=== PATIENT | male | born 1930 | race African-American/Black ===

== ENCOUNTER 2016-12-18 17:38 | Observation (INO) | payer MEDICARE, OTHER ==
[~2016-12-18 17:38] MED LIST: ISOVUE-370 76%-LOCM 1 ML ONE
--- NOTE | 2016-12-18 19:01 | CT ---
CT HEAD WITHOUT IV CONTRAST: 12/18/16 HISTORY: Altered mental status. Patient became confused at gas station and could not perform normal tasks. COMPARISON: 03/21/16 FINDINGS: Again noted are mild chronic small vessel ischemic changes as well as cerebral and cerebellar volume loss. There is no evidence of a hemorrhage, acute infarction, mass effect, or midline shift. Ventri cular system is normal in size, shape, and position for the degree of sulcal atrophy. There is stable postsurgical changes at the left calvarium. Stable linear lucency extending into the base of the left sphenoid bone is again present. There is stable mild encephalomalacia in the left parieto-occipital lobe. There has been no interval change from the prior exam. IMPRESSION: 1. No acute intracranial abnormalities demonstrated. 2. Mild chronic small vessel ischemic changes and cerebral and cerebellar volume loss. 3. Additional findings are as described above. 4. Above findings discussed with Dr. Harrell in the Emergency Department on 12/18/16 at 1823 hours . POS: [facility]
[2016-12-18 19:36] LABS: Prothrombin Time 12.8 SEC (12.0-14.7)
[2016-12-18 19:38] LABS: Hematocrit 40.6 % (42.0-52.0); Mean Platelet Volume 9.5 fL (7.4-10.4); Red Blood Cell (RBC) Count 4.08 mill/uL (4.70-6.10); White Blood Cell (WBC) Count 14.8 thou/uL (4.8-10.8)
[2016-12-18 19:40] LABS: Lactic Acid - Sepsis 2.7 mmol/L (0.5-2.2)
[2016-12-18 19:44] LABS: ALT (SGPT) Less than 7 U/L (8-55); AST (SGOT) 14 U/L (5-34); Alkaline Phosphatase 398 U/L (40-150); Anion Gap 17 mmol/L (10-20); BUN (Urea Nitrogen) 13 mg/dL (8.4-25.7); Bilirubin, Total 0.5 mg/dL (0.2-1.2); CK (CPK) 52 U/L (30-200); Calc. Creatinine Clearance 0 mL/min (70-130); Calcium 10.6 mg/dL (7.8-10.44); Carbon Dioxide 29 mmol/L (23-31); Chloride 96 mmol/L (98-107); Estimated GFR-MDRD 18; Globulin 3.9 g/dL (2.4-3.5); Protein, Total 7.7 g/dL (5.8-8.1)
[2016-12-18 19:48] LABS: Troponin I 0.069 ng/mL (< 0.028)
--- NOTE | 2016-12-18 19:52 | CT ---
CTA OF THE HEAD WITH IV CONTRAST AND 3D REFORMATTED IMAGING CTA OF THE NECK WITH IV CONTRAST AND 3D REFORMATTED IMAGING CT PERFUSION OF THE BRAIN 12/18/16 INDICATION: 86-year-old male with history of confusion at a gas station and not being able to perform normal tas ks. This was a stroke alert. COMPARISON: Noncontrast CT of the brain dated 12/18/16 performed at 6:12 p.m. Comparisons are made with a CTA of the neck dated 03/21/16. FINDINGS: CT PERFUSION EVALUATION: There is symmetrical axial blood flow seen to both cerebral hemispheres. The blood volume is symmetr ical throughout both cerebral hemispheres. The mean transit time is symmetrical throughout both cere bral hemispheres. CTA OF THE NECK: There is calcified lymph nodes within the right hilar region and right aspect of the mediastinum. Th e lung apices are clear. There is severe vascular calcification involving the aortic arch. The visua lized main pulmonary arteries appear within normal limits. The right brachiocephalic artery origin appears within normal limits. The right subclavian artery is widely patent. The right common carotid artery appears widely patent. The carotid bulb and right in ternal carotid artery throughout its cervical segment appears patent. The left common carotid artery originates from the arch in normal configuration. The left common car otid artery is patent. There is mild 50% luminal caliber narrowing involving the left internal carot id artery which is stable to a comparison 03/21/16. The remaining cervical course of the left ICA carrie ears patent. The left subclavian artery origin is patent. There is some mild atherosclerotic irregularity involvi ng the left subclavian artery. The right vertebral artery demonstrates at least high grade stenosis involving the origin of the rig ht vertebral artery. The right vertebral artery appears diminutive which is stable. The cervical cou rse of the right vertebral artery appears patent. 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 This appears stable to the prior exam. There are hypodensities involving the right thyroid lobe which are similar appearing. No pathologically enlarged lymph nodes are evid ent. The visualized aerodigestive tract appears within normal limits. The visualized parotid and sub mandibular glands are normal appearing. CTA OF THE HEAD: The petrous segment of the right ICA is patent. There is some mild atherosclerotic irregularity invo lving the precavernous and cavernous segment of the right ICA. The supraclinoid right ICA is widely patent. The right MCA appears to be widely patent. The ACAs bilaterally appear to be patent. The lef t MCA appears to be widely patent. There is moderate atherosclerotic irregularity involving the intracranial right vertebral artery wit h multifocal mild area of narrowing. The basilar artery appears patent. Both posterior cerebral uzair favian appear patent. The left vertebral artery demonstrates some mild atherosclerotic irregularity al akhil its intracranial segment. No definite acute infarct, hemorrhage, or hydrocephalus is present. There is mild generalized cerebr al and cerebellar atrophy. There is no midline shift. No area of abnormal enhancement is demonstrate d. There is postsurgical change consistent with a left temporal craniotomy. The mastoid air cells ar e clear. The paranasal sinuses are clear. IMPRESSION: 1. Normal cerebral perfusion evaluation. 2. No high grade stenosis seen involving the arterial structures of the intracranial artery. Th ere is multifocal areas of mild narrowing involving both the intracranial vertebral arteries. 3. 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 This is stable to comparison of 03/21. There is high grade stenosis involving the origin of the right vertebral artery due to calcifie d atherosclerotic plaque. 4. Findings of prior granulomatous disease. 5. Right thyroid hypodensities incompletely characterized. These appear similar to the comparis on CT evaluation. Recommend ultrasound followup. 6. Findings were called to Dr. Harrell at 7:09 p.m. on 12/18/16. Code CR POS:
--- NOTE | 2016-12-18 19:59 | RAD ---
PORTABLE AP CHEST X-RAY 12/18/16 HISTORY: Altered mental status. Patient unable to perform normal tasks as usual. COMPARISON: 03/21/16 The cardiac silhouette and pulmonary vasculature are within normal limits for the portable technique of the study. The lungs are clear. Vascular calcifications are again seen in the thoracic aorta. No other interval change. IMPRESSION: No acute cardiopulmonary process. POS: [facility]
[2016-12-18 20:01] LABS: #Lymphocytes 1.2 thou/uL (1.20-3.40); #Monocytes 1.2 thou/uL (0.11-0.59); #Neutrophils 12.4 thou/uL (1.40-6.50); %Lymphocytes 7.7 % (21.0-51.0); Anisocytosis SLIGHT = 6-15 cells (100X) (0-5/hpf); Hypochromia SLIGHT = 6-15 cells (100X) (0-5/hpf); Neutrophil 90 % (42-75); Target Cells SLIGHT = 2-5 cells (100X) (0-1/hpf)
[2016-12-18] MEDS ORDERED: Ondansetron HCl/PF 4 MG/2 ML Vial IVP PRN (23:12)
[2016-12-18] MEDS ORDERED: Ondansetron ODT 4 MG TAB SL PRN (23:12)
[2016-12-18 23:15] VITALS: BMI 22.4
[2016-12-19] MEDS ORDERED: Acetaminophen 500 MG TAB PO PRN (02:07)
[2016-12-19] MEDS ORDERED: cloNIDine HCl 0.1 MG TAB PO PRN (02:07)
[2016-12-19] MEDS ORDERED: Ondansetron ODT 4 MG TAB PO PRN (02:07)
[2016-12-19] MEDS ORDERED: Ondansetron HCl/PF 4 MG/2 ML Vial IVP PRN (02:07)
--- NOTE | 2016-12-19 03:41 | HP ---
DATE OF ADMISSION: 12/19/2016 PRIMARY CARE PROVIDER: [facility] in [place], [place]. PRIMARY DOLLYMAN: Hakeem Hogan M.D. CHIEF COMPLAINT: Altered mentation. HISTORY OF PRESENT ILLNESS: This is an 86-year-old -[place]ov[place] male, who presents to [facility] after apparently becoming confused while getting fuel for his vehicle. The patient states that the gas operations superintendent noticed that he was looking like himself and unable to pe rform simple tasks that he normally would. Patient was noted taking an increased amount of time up to 5 minutes to walk from the door of the gas station to his car and unable to buckle himself into h is vehicle. The patient states that he had completed dialysis previous to filling up his vehicle wi thout incident. Patient states he is compliant with his hemodialysis, which he attends 3 times per week. Patient does relate a history of a recent evaluation at the [facility] in [place], [place], at wh ich point he underwent a bilateral knee arthrocentesis due to swelling of bilateral knees. The darius ent denied any specific trauma or injury, but does state some tenderness to the knee region and some warmth when he touches the knee. Patient denied any specific unilateral symptoms, difficulty with speech, falling, recent head injury, or visual disturbance. The patient denied any specific change to his medication regimen and states he has been compliant with medical followups. The patient was transported to the emergency room undergoing a general evaluation including CT of the head with CT a ngiogram of the head and neck, all negative studies. The patient received aspirin 324 mg and was re ferred to the Hospitalist Service for admission. PAST MEDICAL HISTORY: 1. End-stage renal disease with current hemodialysis 3 times per week. 2. Chronic obstructive pulmonary disease. 3. Secondary hyperparathyroidism. 4. Hypertension. 5. Diastolic heart failure, compensated. 6. Anemia secondary to chronic kidney disease. PAST SURGICAL HISTORY: 1. Status post AV-fistula placement. 2. Status post multiple skin grafting for extensive geller. 3. Status post partial colectomy. 4. Status post bilateral knee arthrocentesis. CURRENT MEDICATIONS: Based on the previous review of the medical record: 1. Tylenol 650 mg p.o. q.6 hours p.r.n. 2. Allopurinol 100 mg p.o. daily. 3. Aspirin 81 mg 1 tab p.o. daily. 4. Atenolol 75 mg p.o. daily. 5. Lipitor 40 mg 1 tab p.o. daily. 6. Sensipar 120 mg p.o. daily. 7. Multivitamin 1 tab p.o. daily. 8. Protonix 40 mg 1 tab p.o. daily. 9. Prazosin 1 mg p.o. at bedtime. 10. Renvela 2400 mg p.o. t.i.d. 11. Sulindac 150 mg p.o. b.i.d. 12. Trazodone 100 mg p.o. at bedtime. ALLERGIES: No known drug allergies. FAMILY HISTORY: Positive for diabetes and hypertension. SOCIAL HISTORY: The patient resides in [place], [place]. . No current alcohol, tobacco, or illicit drug use. Wix war . REVIEW OF SYSTEMS: The following complete review of systems was negative, unless otherwise mentione d in the HPI or below: Constitutional: Weight loss or gain, ability to conduct usual activities. Skin: Rash, itching. Eyes: Double vision, pain. ENT/Mouth: Nose bleeding, neck stiffness, pain, tenderness. Cardiovascular: Palpitations, dyspnea on exertion, orthopnea. Respiratory: Shortnes s of breath, wheezing, cough, hemoptysis, fever or night sweats. Gastrointestinal: Poor appetite, abdominal pain, heartburn, nausea, vomiting, constipation, or diarrhea. Genitourinary: Urgency, fr equency, dysuria, nocturia. Musculoskeletal: Pain, swelling. Neurologic/Psychiatric: Anxiety, de pression. Allergy/Immunologic: Skin rash, bleeding tendency. PHYSICAL EXAMINATION: VITAL SIGNS: On admission, blood pressure 199/76, pulse 72, respiratory rate 18, temperature 98.9 d egrees Fahrenheit, O2 saturation 92% on room air. GENERAL APPEARANCE: This is an 86-year-old -[place] male, alert and oriented x3, pleasant, conversant, in no acute distress. HEENT: Pupils are equal, round, and reactive to light and accommodation. Extraocular muscles are i ntact. No scleral icterus, no conjunctival injection. Nares patent. OP is clear. Teeth in fair r epair. NECK: Supple, no cervical adenopathy, no thyromegaly, no carotid bruits, no JVD appreciated. Cervi paradise spine with full active and passive range of motion. CHEST: Lungs are clear to auscultation bilaterally. CARDIOVASCULAR: S1, S2 with 1-2/6 systolic ejection murmur loudest in the right upper sternal borde r. ABDOMEN: Round, soft, nontender, nondistended. Bowel sounds are positive in all four quadrants. N o hepatosplenomegaly, positive abdominal bruit noted in the midepigastrium. EXTREMITIES: Warm and dry with fair turgor. No clubbing, cyanosis, or asymmetric edema appreciated . Pulses palpable distally at the dorsalis pedis, posterior tibial, and popliteal arteries bilatera lly. Capillary refill less than 2 seconds. Positive mild edema of the right greater than left knee without joint line tenderness. NEUROLOGIC: Cranial nerves II through XII are grossly intact. No focal or lateralizing signs appre ciated. PERTINENT LABORATORY AND X-RAY FINDINGS: Sodium 139, potassium 3.3, chloride 96, CO2 of 29, BUN 13, creatinine 3.79 with estimated GFR of 18, glucose 104, lactic acid level ranged between 2.1-2.7, ca lcium 10.6, alkaline phosphatase 398, troponin I 0.069. Albumin 3.8. CBC showed a white blood cell count 14.8, hemoglobin 12, hematocrit 41, MCV 100, platelet count 148 with 90% neutrophils. CT of the brain without contrast dated 12/18/2016, showed no acute intracranial process. Mild chronic sma ll vessel ischemic changes noted. CT angiogram of the head and neck dated 12/18/2016, showed normal cerebral perfusion. No high-grade stenosis. 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 High-grade stenosis involving the origi n of the right vertebral artery due to calcified or atherosclerostic plaque. Portable chest x-ray d ated 12/18/2016, showed no acute cardiopulmonary process. EKG dated 12/18/2016 by my interpretation , shows sinus mechanism with rates in the 80s. Attenuated R waves noted in the precordial leads. N ormal axis. No acute ST-T wave changes appreciated. ASSESSMENT AND PLAN: 1. Altered mental status/questionable acute encephalopathy. The patient will be observed on the [facility] unit. Exact etiology is unclear. Currently, patient to baseline mental status functioning. N o specific evidence of acute cerebrovascular accident. We will continue supportive management and m onitor clinical response. 2. Hypertension, labile. We will resume home antihypertensive regimen and monitor clinical respons e. 3. Hyperlipidemia. Resume Lipitor 40 mg p.o. daily and check fasting lipid profile in the a.m. 4. End-stage renal disease with hemodialysis. We will consult Nephrology service for any further r ecommendations if patient stays longer than 24 hours. 5. Bilateral knee effusions status post bilateral arthrocentesis. We will continue to monitor clin ically. Leukocytosis noted at the time of admission and we will repeat CBC in the a.m. Hold antibi otic therapy and monitor clinically. 6. Hypokalemia. We will initiate potassium chloride 40 mEq p.o. b.i.d. and repeat potassium level in the a.m. 7. Chronic macrocytic anemia. Suspect secondary to chronic kidney disease. Repeat CBC in the a.m. 8. Prophylaxis. Sequential compression devices while in bed. Pepcid 20 mg p.o. b.i.d. 9. Code status is FULL. Surrogate medical decision maker is patient's spouse.
[2016-12-19 04:09] LABS: Anion Gap 8 mmol/L (10-20); BUN (Urea Nitrogen) 19 mg/dL (8.4-25.7); Calc. Creatinine Clearance 9 mL/min (70-130); Calcium 10.3 mg/dL (7.8-10.44); Carbon Dioxide 36 mmol/L (23-31); Chloride 95 mmol/L (98-107); Estimated GFR-MDRD 15
[2016-12-19 04:40] LABS: Hematocrit 35.9 % (42.0-52.0); Mean Platelet Volume 9.4 fL (7.4-10.4); Neutrophil 85 % (42-75); Red Blood Cell (RBC) Count 3.71 mill/uL (4.70-6.10); White Blood Cell (WBC) Count 10.3 thou/uL (4.8-10.8)
[2016-12-19] MEDS: Sevelamer Carbonate 800 MG TAB PO SCH ×3 (08:26→18:57)
[2016-12-19] MEDS ORDERED: FLU VACC TS2017-18 (>65YR) 0.5 ML SYRINGE IM ONE (09:00)
[2016-12-19] MEDS ORDERED: Famotidine 20 MG TAB PO SCH (09:00)
[2016-12-19] MEDS ORDERED: Atorvastatin Calcium 40 MG TAB PO SCH (09:00)
[2016-12-19] MEDS ORDERED: Atenolol 25 MG TAB PO SCH (09:00)
[2016-12-19] MEDS ORDERED: Cinacalcet HCl 30 MG TAB PO SCH (09:00)
--- NOTE | 2016-12-19 13:38 | CT ---
CTA OF THE HEAD WITH IV CONTRAST AND 3D REFORMATTED IMAGING CTA OF THE NECK WITH IV CONTRAST AND 3D REFORMATTED IMAGING CT PERFUSION OF THE BRAIN 12/18/16 INDICATION: 86-year-old male with history of confusion at a gas station and not being able to perform normal tas ks. This was a stroke alert. COMPARISON: Noncontrast CT of the brain dated 12/18/16 performed at 6:12 p.m. Comparisons are made with a CTA of the neck dated 03/21/16. FINDINGS: CT PERFUSION EVALUATION: There is symmetrical axial blood flow seen to both cerebral hemispheres. The blood volume is symmetr ical throughout both cerebral hemispheres. The mean transit time is symmetrical throughout both cere bral hemispheres. CTA OF THE NECK: There is calcified lymph nodes within the right hilar region and right aspect of the mediastinum. Th e lung apices are clear. There is severe vascular calcification involving the aortic arch. The visua lized main pulmonary arteries appear within normal limits. The right brachiocephalic artery origin appears within normal limits. The right subclavian artery is widely patent. The right common carotid artery appears widely patent. The carotid bulb and right in ternal carotid artery throughout its cervical segment appears patent. The left common carotid artery originates from the arch in normal configuration. The left common car otid artery is patent. There is mild 50% luminal caliber narrowing involving the left internal carot id artery which is stable to a comparison 03/21/16. The remaining cervical course of the left ICA carrie ears patent. The left subclavian artery origin is patent. There is some mild atherosclerotic irregularity involvi ng the left subclavian artery. The right vertebral artery demonstrates at least high grade stenosis involving the origin of the rig ht vertebral artery. The right vertebral artery appears diminutive which is stable. The cervical cou rse of the right vertebral artery appears patent. 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 This appears stable to the prior exam. There are hypodensities involving the right thyroid lobe which are similar appearing. No pathologically enlarged lymph nodes are evid ent. The visualized aerodigestive tract appears within normal limits. The visualized parotid and sub mandibular glands are normal appearing. CTA OF THE HEAD: The petrous segment of the right ICA is patent. There is some mild atherosclerotic irregularity invo lving the precavernous and cavernous segment of the right ICA. The supraclinoid right ICA is widely patent. The right MCA appears to be widely patent. The ACAs bilaterally appear to be patent. The lef t MCA appears to be widely patent. There is moderate atherosclerotic irregularity involving the intracranial right vertebral artery wit h multifocal mild area of narrowing. The basilar artery appears patent. Both posterior cerebral uzair favian appear patent. The left vertebral artery demonstrates some mild atherosclerotic irregularity al akhil its intracranial segment. No definite acute infarct, hemorrhage, or hydrocephalus is present. There is mild generalized cerebr al and cerebellar atrophy. There is no midline shift. No area of abnormal enhancement is demonstrate d. There is postsurgical change consistent with a left temporal craniotomy. The mastoid air cells ar e clear. The paranasal sinuses are clear. IMPRESSION: 1.Normal cerebral perfusion evaluation. 2. No high grade stenosis seen involving the arterial structures of the intracranial arteries. There is multifocal areas of mild narrowing involving both the intracranial vertebral arteries. 3. 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 This is stable to comparison of 03/21. There is high grade stenosis involving the origin of the right vertebral artery due to calcifie d atherosclerotic plaque. 4.Findings of prior granulomatous disease. 5. Right thyroid hypodensities incompletely characterized. These appear similar to the comparis on CT evaluation. Recommend ultrasound followup. 6.Findings were called to Dr. Harrell at 7:09 p.m. on 12/18/16. Code CR
[2016-12-19 15:03] VITALS: BP 150/66; TEMP 98.6
--- NOTE | 2016-12-19 16:51 | DIS ---
DATE OF ADMISSION: 12/19/2016 DATE OF DISCHARGE: 12/19/2016 DISCHARGE DIAGNOSES: 1. Hypertensive encephalopathy, resolved. 2. Malignant hypertension. 3. End-stage renal disease, on hemodialysis. 4. History of carotid stenosis. 5. Anemia of chronic renal disease. 6. History of tobacco abuse. CONSULTATIONS: None. PROCEDURES: None. HISTORY AND PHYSICAL: Mr. Trujilol is an 86-year-old -[place] male, who underwent hemodialysis yesterday and post-dialysis he was getting gas and looked like he was abnormal to the gas station at the [facility]. EMS was called. He was subsequently brought to the hospital for evaluation and was noted to be extremely hypertensive, systolic blood pressure around 199/diastolic pressure of 70s. He was given medicines in the ER, which improved and we were called for admission. He did receive some samuel ging in the ER prior to admission, which showed no acute change in cerebral perfusion and we are paradise led for observation. HOSPITAL COURSE: The patient seen and examined by Dr. Mccormack early this morning. The patient was parrish lucian in observation. He was resumed on his home medications. Neuro checks revealed no changes. Men jackie status at the time of my visit this afternoon was at his baseline. Blood pressures had run in t he 190s through the morning until he had a clonidine and it dropped to 150/66 this afternoon. The son who is power of attorney lawyer is at the bedside, and the patient agreed to take his medicines if he goes home today. He was started on hydralazine 25 mg p.o. t.i.d., script was given, and the darius ent is to follow up with hemodialysis tomorrow. PHYSICAL EXAMINATION: The patient was seen and examined. Discharge plan and disposition were discu ssed with the patient and his son at the bedside face to face. DISCHARGE INSTRUCTIONS: 1. [facility] a [facility]. 2. Follow up with dialysis tomorrow as scheduled. DISCHARGE MEDICATIONS: 1. Tylenol p.r.n. 2. Allopurinol 100 mg daily. 3. Aspirin 81 mg daily. 4. Atenolol 75 mg daily. 5. Lipitor 40 mg at bedtime. 6. Sensipar 120 mg daily. 7. Colace 100 mg b.i.d. 8. Claritin 10 mg daily. 9. Multivitamin daily. 10. Protonix 40 mg daily. 11. Prazosin 1 mg q.p.m. 12. Renvela 2400 mg p.o. t.i.d. with meals. 13. Sulindac 150 mg p.o. b.i.d. p.r.n. 14. Hydralazine 25 mg p.o. t.i.d., 90 tablets with no refills given. 15. Trazodone 100 mg p.o. at bedtime. DISCHARGE CONDITION: Stable. DISPOSITION: The patient is being discharged home via private vehicle.
[2016-12-19] MEDS ORDERED: Prazosin HCl 1 MG CAP PO SCH (21:00)
== END 2016-12-19 17:10 | disposition home or self-care (01) ==
LOC: ERS 17:38 → 2SE 22:40
PROVIDERS: ADMIT Internal Medicine; ATTEND Internal Medicine
DX: I67.4 Hypertensive encephalopathy (principal); I13.2 Hypertensive heart and chronic kidney disease with heart failure and with stage 5 chronic kidney disease, or end stage renal disease; I50.30 Unspecified diastolic (congestive) heart failure; N18.6 End stage renal disease; D63.1 Anemia in chronic kidney disease; I65.29 Occlusion and stenosis of unspecified carotid artery; J44.9 Chronic obstructive pulmonary disease, unspecified; N25.81 Secondary hyperparathyroidism of renal origin; Z90.49 Acquired absence of other specified parts of digestive tract; Z98.890 Other specified postprocedural states; Z87.891 Personal history of nicotine dependence; Z99.2 Dependence on renal dialysis
CPT/HCPCS: 0042T; 70450; 70496; 70498; 71010; 80048; 80053; 82550; 82553; 82962; 83605; 84484; 85007; 85025; 85027; 85610; 85730; 87040; 93005; 96374; 96376; 99285; G0378; 36415; 36416; J0360